=== PATIENT | male | born 1940 | race Caucasian/White ===

== ENCOUNTER 2019-07-03 20:59 | Emergency (ER) | payer MEDICARE, OTHER ==
--- OUTSIDE RECORDS SUMMARY | 2019-07-03 21:14 | XMS REPORT | Continuity of Care Document ---
:1940 External Reference #:[id number] Author Name Felix Watson MD (transmitted by agent of provider Gladys Cote ) Address [address] [place] [address] Care Team Providers Name Role Phone Taj Crespo MD - Nephrology Care Team Information Videotape Sales Representative Cesar Franks MD - Dermatology Care Team Information Videotape Sales Representative [phone] Ranjith Rocha MD - Endocrinology, Care Team Information Videotape Sales Representative [phone] Diabetes & Metabolism Carlitos Vásquez MD - Endocrinology, Care Team Information Videotape Sales Representative Diabetes & Metabolism Debbie Broussard MD - Internal Medicine Care Team Information Videotape Sales Representative [phone] Marvel Michelle MD - Interventional Care Team Information Videotape Sales Representative Pain Medicine Problems Active Problems Provider Date Chronic kidney disease stage 5 Neo Tenorio M.D.,FACP Onset: 12/22/2017 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 with prior surgeyry and radiation Osteoporosis Julio Jain NP Onset: 03/29/2017 Note: On Prolia, 1st dose November 2015 Parkinson's disease Julio Jain NP Onset: 03/29/2017 Essential hypertension Julio Jain NP Onset: 03/29/2017 Decreased testosterone level Julio Jain MRI TECHNOLOGIST Onset: 03/29/2017 Hypothyroidism Julio Jain MRI TECHNOLOGIST Onset: 03/29/2017 Note: central Hypercholesterolemia Julio Jain NP Onset: 03/29/2017 Benign prostatic hypertrophy with outflow Julio Jain NP Onset: 03/29/2017 obstruction Monoclonal free kappa light chain present Neo Tenorio, Onset: 2016 rBie,FACP Moderate recurrent major depression Neo Tenorio, Onset: 06/22/2017 Brie,FACP Basal ganglia degeneration with Neo Tenorio, 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 Brie,FACP Note: RT scarring since 2008 on MRI Social History Type Date Description Comments Sex Unknown Tobacco Use Start: Unknown Never Smoked Cigarettes Smoking Status Reviewed: 04/16/19 Never Smoked Cigarettes ETOH Use 08/23/2017 Occasionally consumes alcohol Tobacco Use Start: Unknown Patient has never smoked Recreational Drug Use Never Used Drugs Exercise Type/Frequency Exercises rarely Allergies, Adverse Reactions, Alerts Description No Known Drug Allergies Medications Active Medications SIG Qnty Indications Ordering Provider Date Levothyroxine Sodium 1 by mouth every 90tabs Debbie Broussard MD 02/06/2019 day, upped to 75mcg Tablets 88mcg tablet Amlodipine Besylate Take 1 Tablet By 30tabs Julio Jain NP 12/25/2018 Mouth Every Day 2.5mg Tablets Shingrix 0.5ml 2units Z23 Julio Jain NP 10/10/2018 50mcg/0.5ML intramuscular, Suspension Rec repeat 2-6 months later Comtan taking 2 tablets 90tabs G20 Binu Dailey, 09/11/2018 200mg Tablets daily M.D. Rivastigmine 1 patch each day 30units F03.91 Binu Dailey, 02/13/2018 Transdermal System M.D. 4.6mg/24HR Patches 24HR Memantine HCL 1 tab mouth 60tabs G23.1 Ollie Love, 10/16/2017 5mg twice a day M.D. Tablets Hydrocortisone take one tablet 60tabs Neo Tenorio, 10mg by mouth twice a M.D.,FACP Tablets day Carbidopa-Levodopa 2 tabs by mouth 540tabs Binu Dailey, three times a M.D. 25-100mg Tablets day Prolia 60 mg sc every 6 1ml M81.0 Julio Jain NP 60mg/ml Soln months Prefill Syringe Prostate Vitamin daily Unknown Capsules Co Q 10 1 by mouth every Unknown 100mg Capsules day Androgel Pump 1 actuation Unknown topical every 20.25mg/Act (1.62%) morning Gel Atorvastatin Calcium take 1 tablet by 90tabs Julio Jain NP mouth every day 40mg Tablets Multi For Him 1 by mouth every Unknown Capsules day Medications Administered in Office Medication SIG Qnty Indications Ordering Provider Date Prolia Injection Patient Nurse Visit A 05/06/2019 Provided Injection Prolia Injection Patient Nurse Visit A 11/02/2018 Provided Injection Prolia Injection, Denosumab, Nurse Visit Reagan 01/30/2018 1MG Injection Prolia no bill patient Nurse Visit Reagan 07/28/2017 Injection Testosterone Pt Provided Vac Nurse Visit A 05/05/2017 Injection Testosterone Pt Provided Vac Nurse Visit A 04/21/2017 Injection Testosterone Pt Provided Vac Neo Tenorio, 04/07/2017 Injection CHASITY Baird Testosterone Pt Provided Vac Julio Jain NP 03/24/2017 Injection Immunizations CPT Code Status Date Vaccine Lot # [id number] Given 07/08/2018 Influenza Virus Vaccine, Quadrivalent, Split, Preservative Free [id number] Given 05/30/2018 Tdap - Tetanus/Diptheria/Acellular Pertussis [id number] Given 06/22/2017 Pneumococcal Conjugate Vaccine 13 Valent For [id number] Intramuscular Use [id number] Given 05/05/2017 Influenza Virus Vaccine, Quadrivalent, Split, [id number] Preservative Free Vital Signs Date Vital Result Comment 06/24/2019 1:50pm Weight 157.00 lb Heart Rate 60 /min BP Systolic Sitting 140 mmHg BP Diastolic Sitting 78 mmHg 04/16/2019 8:41am Height 65 inches 5'5" Weight 157.00 lb Heart Rate 58 /min BP Systolic 122 mmHg BP Diastolic 70 mmHg BMI (Body Mass Index) 26.1 kg/m2 Results Test Date Facility Test Result H/L Range Note Comp Metabolic 04/10/2019 [facility] Sodium 139 mmol/L Normal 135-[address] [place] [address] [phone] Potassium 3.7 mmol/L Normal 3.5-5.0 Chloride 103 mmol/L Normal 101-111 Co2 Carbon Dioxide 28 mmol/L Normal 22-32 Anion Gap 8 mmol/L Normal 2-11 Glucose 77 mg/dL Normal 70-100 Blood Urea Nitrogen 35 mg/dL High 6-24 Creatinine 2.48 mg/dL High 0.67-1.17 One Over Creatinine 0.40 BUN/Creatinine Ratio 14.1 Normal 8-20 Calcium 10.2 mg/dL Normal 8.6-10.3 Total Protein 7.0 g/dL Normal 6.4-8.9 Albumin 4.2 g/dL Normal 3.2-5.2 Globulin 2.8 g/dL Normal 2-4 Albumin/Globulin Ratio 1.5 Normal 1-3 Total Bilirubin 0.60 mg/dL Normal 0.2-1.0 Alkaline Phosphatase 46 U/L Normal 34-104 Alt 5 U/L Low 7-52 Ast 20 U/L Normal 13-39 Egfr Non- 25.2 >60 Egfr 30.5 >60 1 Laboratory test 04/10/2019 [facility] Phosphorus 2.9 mg/dL Normal 2.5-5.[address] [place] [address] [phone] Magnesium 1.8 mg/dL Low 1.9-2.7 Laboratory test 03/28/2019 [facility] CSF Protein 63 mg/dL High 15-[address] [place] [phone] CSF Glucose 63 mg/dL Normal 40-70 CSF Cell Count 03/28/2019 [facility] Body Fluid Cerebral Spinal [address] [facility] Source [place], [place] [id number] [phone] Body Fluid Appearance Clear Body Fluid Color Colorless CSF Tube # 4 Body Fluid Volume 5.5 mL Body Fluid WBC 0 /mcL Body Fluid RBC 0 /mcL Body Fluid Lymph 1 % Body Fluid [place] 2 % Body Fluid Total Cells Counted 3 Fluid Reviewed By MD (SEE NOTE) 2 Laboratory test 03/28/2019 [facility] RPR CSF Negative Negative [address] [place] [address] [phone] CBC Auto Diff 02/06/2019 [facility] White 12.0 10^3/uL High 3.5-10.8 [address] [facility] [place] [address] Count [phone] Red Blood Count 3.93 10^6/uL Low 4.18-5.48 Hemoglobin 11.9 g/dL Low 14.0-18.0 Hematocrit 35 % Low 42-52 Mean Corpuscular Volume 89 fL Normal 80-94 Mean Corpuscular Hemoglobin 30 pg Normal 27-31 Mean Corpuscular HGB Conc 34 g/dL Normal 31-36 Red Cell Distribution Width 14 % Normal 10-15 Platelet Count 211 10^3/uL Normal 150-450 Mean Platelet Volume 9.8 fL Normal 7.4-10.4 Abs Neutrophils 8.4 10^3/uL High 1.5-7.7 Abs Lymphocytes 2.6 10^3/uL Normal 1.0-4.8 Abs Monocytes 0.7 10^3/uL Normal 0-0.8 Abs Eosinophils 0.2 10^3/uL Normal 0-0.6 Abs Basophils 0.1 10^3/uL Normal 0-0.2 Abs Nucleated RBC 0.0 10^3/uL Granulocyte % 70.2 % Lymphocyte % 21.8 % Monocyte % 5.7 % Eosinophil % 1.9 % Basophil % 0.4 % Nucleated Red Blood Cells % 0.0 Comp Metabolic 02/05/2019 [facility] Sodium 140 mmol/L Normal 135-[address] [place] [address] [phone] Potassium 3.9 mmol/L Normal 3.5-5.0 Chloride 105 mmol/L Normal 101-111 Co2 Carbon Dioxide 29 mmol/L Normal 22-32 Anion Gap 6 mmol/L Normal 2-11 Glucose 89 mg/dL Normal 70-100 Blood Urea Nitrogen 51 mg/dL High 6-24 Creatinine 3.33 mg/dL High 0.67-1.17 BUN/Creatinine Ratio 15.3 Normal 8-20 Calcium 11.5 mg/dL High 8.6-10.3 Total Protein 7.2 g/dL Normal 6.4-8.9 Albumin 4.2 g/dL Normal 3.2-5.2 Globulin 3.0 g/dL Normal 2-4 Albumin/Globulin Ratio 1.4 Normal 1-3 Total Bilirubin 0.60 mg/dL Normal 0.2-1.0 Alkaline Phosphatase 53 U/L Normal 34-104 Alt 5 U/L Low 7-52 Ast 17 U/L Normal 13-39 Egfr Non- 17.9 >60 Egfr 21.7 >60 4 Laboratory test 02/05/2019 [facility] TSH (Thyroid 0.16 Low 0.34-5.[address] Stim Horm) mcIU/[place] [address] [phone] Free T4 (Free Thyroxine) 0.81 ng/dL Normal 0.61-1.12 CBC Auto 02/05/2019 [facility] White Blood 12.0 10^3/uL High 3.5-10.[address] [place] [address] [phone] Red Blood Count 4.03 10^6/uL Low 4.18-5.48 Hemoglobin 12.2 g/dL Low 14.0-18.0 Hematocrit 36 % Low 42-52 Mean Corpuscular Volume 90 fL Normal 80-94 Mean Corpuscular Hemoglobin 30 pg Normal 27-31 Mean Corpuscular HGB Conc 34 g/dL Normal 31-36 Red Cell Distribution Width 14 % Normal 10-15 Platelet Count 212 10^3/uL Normal 150-450 Mean Platelet Volume 9.4 fL Normal 7.4-10.4 Abs Neutrophils 7.4 10^3/uL Normal 1.5-7.7 Abs Lymphocytes 3.1 10^3/uL Normal 1.0-4.8 Abs Monocytes 1.0 10^3/uL High 0-0.8 Abs Eosinophils 0.4 10^3/uL Normal 0-0.6 Abs Basophils 0.1 10^3/uL Normal 0-0.2 Abs Nucleated RBC 0.0 10^3/uL Granulocyte % 61.7 % Lymphocyte % 25.9 % Monocyte % 8.2 % Eosinophil % 3.7 % Basophil % 0.5 % Nucleated Red Blood Cells % 0.0 Urinalysis Profile 02/05/2019 [facility] Urine Color Arti [address] [place] [address] [phone] Urine Appearance Clear Urine Specific [place] 1.013 Normal 1.010-1.030 Urine pH 6.0 Normal 5-9 Urine Urobilinogen Negative Negative Urine Ketones Negative Negative Urine Protein Negative Negative Urine Leukocytes Negative Negative Urine Blood Negative Negative * * Abnormal Negative 5 Urine Nitrite Negative Negative Urine Bilirubin Negative Negative Urine Glucose Negative Negative 1 Because ethnic data is not always readily available, this report includes an eGFR for both -Americans and non- Americans. The National Kidney Disease Education Program (NKDEP) does not endorse the use of the MDRD equation for patients that are not between the ages of 18 and 70, are , have extremes of body size, muscle mass, or nutritional status, or are non- or non-. According to the National Kidney Foundation, irrespective of diagnosis, the stage of the disease is based on the level of kidney function: Stage Description GFR(mL/min/1.73 m(2)) 1 Kidney damage with normal or decreased GFR 90 2 Kidney damage with mild decrease in GFR 60-89 3 Moderate decrease in GFR 30-59 4 Severe decrease in GFR 15-29 5 Kidney failure <15 (or dialysis) 2 No evidence of an acute inflammatory response. No evidence of malignancy. Reviewed by Lisa Carter MD 3 Test Performed by: [facility] [address] [place] [id number] 4 Because ethnic data is not always readily available, this report includes an eGFR for both -Americans and non- Americans. The National Kidney Disease Education Program (NKDEP) does not endorse the use of the MDRD equation for patients that are not between the ages of 18 and 70, are , have extremes of body size, muscle mass, or nutritional status, or are non- or non-. According to the National Kidney Foundation, irrespective of diagnosis, the stage of the disease is based on the level of kidney function: Stage Description GFR(mL/min/1.73 m(2)) 1 Kidney damage with normal or decreased GFR 90 2 Kidney damage with mild decrease in GFR 60-89 3 Moderate decrease in GFR 30-59 4 Severe decrease in GFR 15-29 5 Kidney failure <15 (or dialysis) 5 *Ascorbic acid is present which may interfere with detection of blood. Procedures Date Code Description Status 05/06/2019 82561 Admin Of Inj Completed 05/11/2017 176804010 Bone Mineral Density Test Completed 12/26/2013 86567688 Colonoscopy Completed Medical Devices Description No Information Available Encounters Type Date Location Provider Dx Diagnosis Office Visit 04/16/2019 [facility] Mitch Valdez NP G31.84 Mild cognitive 8:30a [facility] impairment, so stated G20 Parkinson's disease R29.6 Repeated falls G93.2 Benign intracranial hypertension Office Visit 03/28/2019 [facility] G20 Parkinson's 11:00a Clinic Brie Dailey disease G31.84 Mild cognitive impairment, so stated Office Visit 02/25/2019 [facility] G20 Parkinson's 10:45a Clinic Brie Dailey disease R29.6 Repeated falls Office Visit 02/05/2019 9:40a [facility] Internal Debbie Broussard, G20 Parkinson's disease Medicine [facility] R29.6 Repeated falls Assessments Date Code Description Provider 06/24/2019 G20 Parkinson's disease Felix Watson MD 06/24/2019 G91.2 (Idiopathic) normal pressure hydrocephalus Felix Watson MD 05/06/2019 M81.0 Age-related osteoporosis without current Nurse Visit A pathological fracture 04/16/2019 G31.84 Mild cognitive impairment, so stated Mitch Valdez NP 04/16/2019 G20 Parkinson's disease Mitch Valdez NP 04/16/2019 R29.6 Repeated falls Mitch Valdez NP 04/16/2019 G93.2 Benign intracranial hypertension Mitch Valdez NP 03/28/2019 G20 Parkinson's disease Binu Dailey M.D. 03/28/2019 G31.84 Mild cognitive impairment, so stated Binu Dailey M.D. 02/25/2019 G20 Parkinson's disease Binu Dailey M.D. 02/25/2019 R29.6 Repeated falls Binu Dailey M.D. 02/05/2019 G20 Parkinson's disease Debbie Broussard MD 02/05/2019 R29.6 Repeated falls Debbie Broussard MD Plan of Treatment Future Appointment(s):08/09/2019 2:00 pm - Ollie Love M.D. at [facility]07/12/2019 8:45 am - Binu Dailey M.D. at [id number]/11/2019 11:00 am - Julio Jain NP at [facility] Internal [facility]06/24/2019 - Felix Watson MDG20 Parkinson's emkjnttX71.2 (Idiopathic) normal pressure hydrocephalus Functional Status Description No Information Available Mental Status Description No Information Available Referrals Refer to Reason for Referral Status Appt Date Felix Watson MD Referral for ventricular shunt. Had an LP Sent with improvement in mobility. [address] [place] [address] [phone] Marvel Michelle MD LP for possible NPH Sent 03/22/[address] [place] [id number] [phone]
--- NOTE | 2019-07-03 21:34 | ED ---
Upper Extremity Pain - HPI Summary HPI Summary: 79 year old M presenting [facility] accompanied by and son complains of right elbow pain after fall today 07/03/19. states patient has had increased falls in the last couple weeks. states that last night, patient had a fall, and they had difficulty getting him up. states patient had OT this morning, and had difficulty getting up after a fall. states patient has had multiple falls today. states she is concerned that patient is having increased difficulty getting up after falling. No head trauma. Patient reports decreased appetite, difficulty with speech and swallowing, weakness, back pain. Patient denies headache, fever, chest pain, shortness of breath, abdominal pain, urinary sx. The patient rates the pain 8/10 in severity. Symptoms aggravated by nothing. Symptoms alleviated by nothing. Hx Parkinson's. Hx kidney disease. - History of Current Complaint Chief Complaint: EDFall Stated Complaint: MULTIPLE FALLS PER Time Seen by Provider: 07/03/19 21:29 Hx Obtained From: Patient, Family/[employer] - Onset/Duration: Started Weeks Ago, Still Present, Worse Since - today 07/03 Timing: Constant Severity Currently: Severe - 8/10 Pain Location: Elbow - right Aggravating Factor(s): Nothing Alleviating Factor(s): Nothing Associated Signs & Symptoms: Positive: Negative - headache, fever, chest pain, shortness of breath, abdominal pain, urinary sx, Other - decreased appetite, difficulty with speech and swallowing, weakness, back pain - Allergies/Home Medications Allergies/Adverse Reactions: Allergies Allergy/AdvReac Type Severity Reaction Status Date / Time No Known Allergies Allergy Verified 07/03/19 21:07 Home Medications: Home Medications Entacapone (NF) [Comtan (NF)] 200 mg PO BID 07/03/19 [History Confirmed 07/03/19 ] Levothyroxine TAB* [Synthroid TAB*] 88 mcg PO DAILY 07/03/19 [History Confirmed 07/03/19] Multivitamins/Minerals TAB* [Theragran/minerals TAB*] 1 tab PO DAILY 07/03/19 [ History Confirmed 07/03/19] Super Beta Prostate 250 mg PO DAILY 07/03/19 [History Confirmed 07/03/19] Ubidecarenone [Coq-10] 100 mg PO DAILY 07/03/19 [History Confirmed 07/03/19] amLODIPine TAB* [Norvasc 5 mg TAB*] 2.5 mg PO DAILY 07/03/19 [History Confirmed 07/03/19] PMH/Surg Hx/FS Hx/Imm Hx Endocrine/Hematology History: Denies: Hx Diabetes Cardiovascular History: Reports: Hx Hypertension - ON MEDS Denies: Hx Pacemaker/ICD History: 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 TONSILLECTOMY AND ADENOIDS;. LT 4TH AND 5TH FINGERS; Infectious Disease History: No Infectious Disease History: Denies: Traveled Outside the [place] in Last 30 Days - Social History Alcohol Use: None Substance Use Type: Reports: None Hx Tobacco Use: No Smoking Status (MU): Never Smoked Tobacco Review of Systems Negative: Fever Negative: Chest Pain Negative: Shortness Of Breath Positive: Other - decreased appetite. Negative: Abdominal Pain Positive: no symptoms reported Positive: Other - right elbow pain, back pain Neurological: Other - difficulty with speech and swalloing Positive: Weakness. Negative: Headache All Other Systems Reviewed And Are Negative: Yes Physical Exam - Summary Physical Exam Summary: Appearance: Well-appearing, Well-nourished, lying in bed comfortably Skin: Warm, dry, no obvious rash, linear abrasions on his right forearm Eyes: sclera anicteric, no conjunctival pallor ENT: mucous membranes moist, pharynx appears normal Neck: Supple, nontender Respiratory: Clear to auscultation, no signs of respiratory distress Cardiovascular: Normal S1, S2. No murmurs. Normal distal pulses in tibial and radial bilaterally. Abdomen: Soft, nontender, normal active bowel sounds present Musculoskeletal: Normal, Strength/ROM Intact Neurological: A&Ox3, awake and alert, mentation is normal, speech is fluent and appropriate Psychiatric: affect is normal, does not appear anxious or depressed Triage Information Reviewed: Yes Vital Signs On Initial Exam: Initial Vitals Temp Pulse Resp BP Pulse Ox 97.9 F 77 18 156/79 97 07/03/19 21:03 07/03/19 21:03 07/03/19 21:03 07/03/19 21:03 07/03/19 21:03 Vital Signs Reviewed: Yes Procedures - Sedation Patient Received Moderate/Deep Sedation with Procedure: No Diagnostics - Vital Signs Vital Signs Temp Pulse Resp BP Pulse Ox 07/03/19 21:03 97.9 F 77 18 156/79 97 - Laboratory Result Diagrams: 07/03/19 21:25 07/03/19 21:25 Lab Statement: Any lab studies that have been ordered have been reviewed, and results considered in the medical decision making process. - EKG 2148 Cardiac Rate: NL - 68 BPM EKG Rhythm: Sinus Rhythm Summary of EKG Findings: NSR at 68 BPM, P waves, QRS complex, and T waves are within normal limits, T waves and intervals are normal, no ischemic changes. This is a normal EKG. Re-Evaluation - Re-Evaluation First Eval Re-Evaluation Time: 00:30 Comment: family agrees to d/c Course/Dx - Course Course Of Treatment: 79 year old M complains of frequent falls in the last several weeks. Upon exam, the patient has linear abrasions on his right forearm. Bloodwork results with no significant abnormalities except for RBC 3.88, Hgb 12.3, MCH 32, absolute neuts 7.8, absolute lymphs 0.8, absolute monos 0.9, potassium 3.4, BUN 45, creatinine 3.00, glucose 126, calcium 10.9, magnesium 1.6, ALT 4, CRP 29.39, and TSH 0.08. Urinalysis results with no significant abnormalities. Toxicology results with no significant abnormalities. EKG shows NSR at 68 BPM, P waves, QRS complex, and T waves are within normal limits, T waves and intervals are normal, no ischemic changes. This is a normal EKG. Dr. Emmanuel, hospitalist, agrees to evaluate patient for admission. The patient was originally going to be admitted to observation for social work consult but his family elected to take him home, they will look into alf care. I did place a consult to social work to see if someone can reach out to offer some assistance in this. Patient will be discharged home with follow up from his primary care provider as soon as possible. Patient was instructed to return to Emergency Department for new or worsening symptoms. Patient understands and is agreeable to this plan. - Diagnoses Provider Diagnoses: Frequent falls - Physician Notifications Discussed Care of Patient With: Saman Emmanuel Time Discussed With Above Provider: 23:58 Instructed by Provider To: Other - Dr. Emmanuel, hospitalist, agrees to evaluate patient for admission. Discharge ED - Sign-Out/Discharge Documenting (check all that apply): Patient Departure - Discharge - Discharge Plan Condition: Good Disposition: HOME Patient Education Materials: Fall Prevention (ED) Referrals: Debbie Broussard MD [Primary Care Provider] - As Soon As Possible - Billing Disposition and Condition Condition: GOOD Disposition: Home - Attestation Statements Document Initiated by Kishoribe: Yes Documenting Scribe: Becky Ayala Provider For Whom Nancy is Documenting (Include Credential): Andrés Elizalde MD Scribe Attestation: Becky Patricia scribed for Andrés Elizalde MD on 07/04/19 at 0510. Scribe Documentation Reviewed: Yes Provider Attestation: The documentation as recorded by the Becky chew accurately reflects the service I personally performed and the decisions made by Andrés minor MD Status of Scribe Document: Viewed
[2019-07-03 21:35] LABS: ABS Eosinophils 0.1 10^3/ul (0-0.6); ABS Lymphocytes 0.8 10^3/ul (1.0-4.8); ABS Monocytes 0.9 10^3/ul (0-0.8); ABS Neutrophils 7.8 10^3/ul (1.5-7.7); Eosinophil % 0.9 %; Hematocrit 35 % (42-52); Hemoglobin 12.3 g/dL (14.0-18.0); Lymphocyte % 8.2 %; Mean Corpuscular HGB Conc 35 g/dL (31-36); Mean Corpuscular Hemoglobin 32 pg (27-31); Mean Corpuscular Volume 91 fL (80-94); Platelet Count 183 10^3/uL (150-450); Red Blood Count 3.88 10^6 /uL (4.18-5.48); Red Cell Distribution Width 13 % (10-15); White Blood Count 9.6 10^3/uL (3.5-10.8)
[2019-07-03 21:51] LABS: Albumin 4.1 g/dL (3.2-5.2); Anion Gap 4 mmol/L (2-11); Blood Urea Nitrogen 45 mg/dL (6-24); CO2 Carbon Dioxide 27 mmol/L (22-32); Calcium 10.9 mg/dL (8.6-10.3); Chloride 104 mmol/L (101-111); EGFR African American 24.4 (>60); EGFR Non-African American 20.2 (>60); Globulin 3.2 g/dL (2-4); Glucose 126 mg/dL (70-100); Magnesium 1.6 mg/dL (1.9-2.7); Potassium 3.4 mmol/L (3.5-5.0); Sodium 135 mmol/L (135-145); Total Protein 7.3 g/dL (6.4-8.9)
[2019-07-03 21:52] LABS: ALT 4 U/L (7-52); AST 18 U/L (13-39); Albumin/Globulin Ratio 1.3 (1-3); Alkaline Phosphatase 50 U/L (34-104); C Reactive Protein 29.39 mg/L (<8.01)
[2019-07-03 21:53] LABS: Troponin I 0.01 ng/mL (<0.04)
[2019-07-03 22:10] LABS: Alcohol < 10 mg/dL (<10)
[2019-07-03 22:25] LABS: TSH (Thyroid Stimulating Horm) 0.08 mcIU/mL (0.34-5.60)
[2019-07-03 22:48] LABS: Urine Appearance Clear; Urine Bilirubin Negative (Negative); Urine Blood Negative (Negative); Urine Color Yellow; Urine Glucose Negative (Negative); Urine Ketones Negative (Negative); Urine Nitrite Negative (Negative); Urine Protein Negative (Negative); Urine Specific Gravity 1.012 (1.010-1.030); Urine Urobilinogen Negative (Negative)
[2019-07-04 00:49] VITALS: BP 160/102
== END 2019-07-04 00:48 | disposition home or self-care (01) ==
LOC: ED 20:59
DX: M25.521 Pain in right elbow (principal); W19.XXXA Unspecified fall, initial encounter; Z91.81 History of falling; Y92.9 Unspecified place or not applicable; G20 Parkinson's disease; I12.9 Hypertensive chronic kidney disease with stage 1 through stage 4 chronic kidney disease, or unspecified chronic kidney disease; N18.4 Chronic kidney disease, stage 4 (severe); E03.9 Hypothyroidism, unspecified; F41.9 Anxiety disorder, unspecified; Z85.820 Personal history of malignant melanoma of skin; Z79.890 Hormone replacement therapy; Z79.899 Other long term (current) drug therapy
CPT/HCPCS: 36415; 80053; 80320; 81003; 83605; 83735; 84443; 84484; 85025; 86140; 93005; 99282; G0480

== ENCOUNTER 2019-07-04 19:05 | Emergency (ER) | payer MEDICARE, OTHER ==
--- NOTE | 2019-07-04 20:27 | ED ---
Complex/Multi-Sys Presentation - HPI Summary HPI Summary: Patient is a 79 y/o M w/ Hx of Parkinson's disease, chronic kidney disease, and pituitary adenoma with pituitary replacement therapy x20 years s/p brain surgery who [place] [facility] accompanied by and son for evaluation of generalized decline. Family reports that the patient has had increased generalized weakness, decline in functionality, and difficulty with ADLs. Patient had been evaluated 07/03/19 with complaints of multiple falls and similar complaints for the past few weeks. There were plans to admit the patient for observation and social work consult. However, the family elected to take the patient home and to look into intermediate accountant care for the patient. They state that the patient's Sx have worsened and also report that he had a fall today as well, which prompted their return to the ED. The patient denies pain and injury. notes no recent head trauma. In room, vitals are BP 120/80, o2 92 on RA, pulse 81. On triage, pain is denied, nothing is noted to aggravate/ alleviate Sx. Home medications and allergies are reviewed. - History Of Current Complaint Chief Complaint: EDWeakness Time Seen by Provider: 07/04/19 20:04 Hx Obtained From: Patient Onset/Duration: Lasting Hours, Lasting Weeks, Still Present, Worse Since Timing: Constant Severity Currently: None - pain denied Aggravating Factor(s): nothing Alleviating Factor(s): nothing Associated Signs And Symptoms: Positive: Weakness - generalized, Other - positive - increased generalized weakness, decline in functionality, difficulty with ADLs, fall; negative - pain, injuries, head trauma - Allergies/Home Medications Allergies/Adverse Reactions: Allergies Allergy/AdvReac Type Severity Reaction Status Date / Time No Known Allergies Allergy Verified 07/03/19 21:07 PMH/Surg Hx/FS Hx/Imm Hx Endocrine/Hematology History: Denies: Hx Diabetes Cardiovascular History: Reports: Hx Hypertension - ON MEDS Denies: Hx Pacemaker/ICD History: 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 TONSILLECTOMY AND ADENOIDS;. LT 4TH AND 5TH FINGERS; - Immunization History Date of Influenza Vaccine: 04/2019 Immunizations Up to Date: Yes Infectious Disease History: No Infectious Disease History: Denies: Traveled Outside the [place] in Last 30 Days - Family History Known Family History: Negative: Cardiac Disease, Hypertension, Diabetes - Social History Alcohol Use: Rare Substance Use Type: Reports: None Hx Tobacco Use: No Smoking Status (MU): Never Smoked Tobacco Review of Systems Constitutional: Other - positive - increased generalized weakness, decline in functionality, and difficulty with ADLs Musculoskeletal: Other - positive - fall; negative - pain, injury Neurological: Other - negative - head trauma All Other Systems Reviewed And Are Negative: Yes Physical Exam - Summary Physical Exam Summary: Appearance: Well-appearing, Well-nourished, lying in bed comfortably Skin: Warm, dry, no obvious rash Eyes: sclera anicteric, no conjunctival pallor ENT: mucous membranes moist, pharynx appears normal Neck: Supple, nontender Respiratory: Clear to auscultation, no signs of respiratory distress Cardiovascular: Normal S1, S2. No murmurs. Normal distal pulses in tibial and radial bilaterally. Abdomen: Soft, nontender, normal active bowel sounds present Musculoskeletal: Normal, Strength/ROM Intact Neurological: A&Ox3, awake and alert, mentation is normal, speech is fluent and appropriate Psychiatric: affect is normal, does not appear anxious or depressed Triage Information Reviewed: Yes Vital Signs On Initial Exam: Initial Vitals Temp Pulse Resp BP Pulse Ox 98.8 F 88 16 80/58 94 07/04/19 19:42 07/04/19 19:42 07/04/19 19:42 07/04/19 19:42 07/04/19 19:42 Vital Signs Reviewed: Yes - Chang Coma Scale Best Eye Response: 4 - Spontaneous Best Motor Response: 6 - Obeys Commands Best Verbal Response: 5 - Oriented Coma Scale Total: 15 Procedures - Sedation Patient Received Moderate/Deep Sedation with Procedure: No Diagnostics - Vital Signs Vital Signs Temp Pulse Resp BP Pulse Ox 07/04/19 19:42 98.8 F 88 16 80/58 94 - Laboratory Lab Statement: Any lab studies that have been ordered have been reviewed, and results considered in the medical decision making process. - CT BRAIN CT CT Interpretation Completed By: Radiologist Summary of CT Findings: IMPRESSION: 1. No acute intracranial findings or hemorrhage. No subdural hematoma. 2. No. acute intracranial findings. Age- related atrophy and chronic white matter. ischemic change. 3. Extensive right basal ganglia calcifications. Calcified mass in this region. was postulated on prior brain MRIs. 4. Hypodensity in left basal ganglia which could represent subacute to chronic. infarct. These areas demonstrated abnormal signal on prior brain MRIs. THIS REPORT WAS REVIEWED BY DR. IVEY. Re-Evaluation - Re-Evaluation First Eval Re-Evaluation Time: 00:57 Change: Unchanged Comment: I contacted Dr. Emmanuel about admitting the patient, but after discussion with him and understanding he would be admitted to observation status , they declined admission and will again seek assistance for rehab care. Complex Multi-Symp Course/Dx Course Of Treatment: Patient is a 79 y/o M w/ Hx of Parkinson's disease, chronic kidney disease, and pituitary adenoma with pituitary replacement therapy x20 years s/p brain surgery who presents [place] [facility] accompanied by and son for evaluation of generalized decline. Family reports that the patient has had increased generalized weakness, decline in functionality, and difficulty with ADLs. Patient had been evaluated 07/03/19 with complaints of multiple falls and similar complaints for the past few weeks. There were plans to admit the patient for observation and social work consult. However, the family elected to take the patient home and to look into intermediate accountant care for the patient. They state that the patient's Sx have worsened and also report that he had a fall today as well, which prompted their return to the ED. The patient denies pain and injury. notes no recent head trauma. BRAIN CT IMPRESSION: 1. No acute intracranial findings or hemorrhage. No subdural hematoma. 2. No. acute intracranial findings. Age-related atrophy and chronic white matter. ischemic change. 3. Extensive right basal ganglia calcifications. Calcified mass in this region. was postulated on prior brain MRIs. 4. Hypodensity in left basal ganglia which could represent subacute to chronic. infarct. These areas demonstrated abnormal signal on prior brain MRIs. Patient's case was discussed with Dr. Emmanuel, Dr. Emmanuel accepts patient for admission to [facility]. [id number] - Dr. Emmanuel states that he offerred admission for observation to the patient. However, patient and family refused and stated they wish to be discharged. Patient was discharged to home with PCP follow up. - Diagnoses Provider Diagnoses: Generalized weakness, Gait disturbance, Parkinson disease - Physician Notifications Discussed Care Of Patient With: Saman Emmanuel Time Discussed With Above Provider: 22:50 Instructed by Provider To: Other - Patient's case was discussed with Dr. Emmanuel, Dr. Emmanuel accepts patient for admission to [facility]. 0056 - Dr. Emmanuel states that he offerred admission for observation to the patient. However, patient and family refused and stated they wish to be discharged. Discharge ED - Sign-Out/Discharge Documenting (check all that apply): Patient Departure - discharge - Discharge Plan Condition: Stable Disposition: HOME Patient Education Materials: Weakness (ED) Referrals: Debbie Broussard MD [Primary Care Provider] - As Soon As Possible - Billing Disposition and Condition Condition: STABLE Disposition: Home - Attestation Statements Document Initiated by Nancy: Yes Documenting Scribe: KIKI RODRIGUES Provider For Whom Nancy is Documenting (Include Credential): ANA IVEY MD Scribe Attestation: KIKI Patricia, scribed for ANA IVEY MD on 07/05/19 at 0555. Scribe Documentation Reviewed: Yes Provider Attestation: The documentation as recorded by the KIKI chew accurately reflects the service I personally performed and the decisions made by me, ANA IVEY MD Status of Scribe Document: Viewed
[2019-07-05 01:19] VITALS: BP 110/62
== END 2019-07-05 01:19 | disposition home or self-care (01) ==
LOC: ED 19:05
DX: R53.1 Weakness (principal); R26.9 Unspecified abnormalities of gait and mobility; G20 Parkinson's disease; I12.9 Hypertensive chronic kidney disease with stage 1 through stage 4 chronic kidney disease, or unspecified chronic kidney disease; N18.4 Chronic kidney disease, stage 4 (severe); F41.0 Panic disorder [episodic paroxysmal anxiety]; Z85.820 Personal history of malignant melanoma of skin; Z79.890 Hormone replacement therapy
CPT/HCPCS: 70450; 99283

== ENCOUNTER 2022-01-27 14:39 | Inpatient (IN) ==
[2022-01-27] MEDS ORDERED: NS 0.9% IV ONE (15:15)
[2022-01-27] MEDS ORDERED: Piperacillin/Tazobac ADVAN 3.375 GM in NS 0.9% 100 ml BAG 100 ML IV ONE (15:31)
[2022-01-27 15:41] LABS: ABS Basophils 0.1 10^3/ul (0-0.2); ABS Eosinophils 0.1 10^3/ul (0-0.6); ABS Lymphocytes 0.3 10^3/ul (1.0-4.8); ABS Monocytes 0.3 10^3/ul (0-0.8); ABS Neutrophils 8.1 10^3/ul (1.5-7.7); Eosinophil % 0.6 %; Hematocrit 21 % (42-52); Hemoglobin 6.8 g/dL (14.0-18.0); Lymphocyte % 3.2 %; Mean Corpuscular HGB Conc 32 g/dL (31-36); Mean Corpuscular Hemoglobin 32 pg (27-31); Mean Corpuscular Volume 98 fL (80-94); Mean Platelet Volume 9.8 fL (7.4-10.4); Nucleated Red Blood Cells % 0.1; Platelet Count 172 10^3/uL (150-450); Red Blood Count 2.15 10^6 /uL (4.18-5.48); Red Cell Distribution Width 18 % (10-15); White Blood Count 8.9 10^3/uL (3.5-10.8)
[2022-01-27 15:49] LABS: Activated Partial Thrombo Time 32.9 seconds (26.0-38.0); INR 1.04 (0.86-1.15)
[2022-01-27 16:05] LABS: High Sens Troponin Baseline 14 pg/mL (<20)
[2022-01-27 16:22] LABS: ALT 8 U/L (7-52); AST 24 U/L (13-39); Albumin 3.3 g/dL (3.2-5.2); Albumin/Globulin Ratio 1.4 (1-3); Alkaline Phosphatase 91 U/L (35-149); Blood Urea Nitrogen 105 mg/dL (6-24); C Reactive Protein 95.86 mg/L (<8.01); CO2 Carbon Dioxide 17 mmol/L (22-32); Calcium 9.1 mg/dL (8.6-10.3); Globulin 2.3 g/dL (2-4); Glucose 95 mg/dL (70-100); Potassium 4.8 mmol/L (3.5-5.0); Sodium 141 mmol/L (135-145); Total Protein 5.6 g/dL (6.4-8.9); eGFR CKD-EPI 12.6 (>60)
[2022-01-27 16:29] LABS: Anion Gap 11 mmol/L (2-11); Chloride 113 mmol/L (101-111)
[2022-01-27 17:02] LABS: High Sensitivity Troponin 1 Hr 11 pg/mL (<20)
[2022-01-27 17:48] LABS: Urine Appearance Clear; Urine Bilirubin Negative (Negative); Urine Blood Negative (Negative); Urine Color Yellow; Urine Glucose Negative (Negative); Urine Ketones Trace (Negative); Urine Nitrite Negative (Negative); Urine Protein Negative (Negative); Urine Specific Gravity 1.013 (1.002-1.030); Urine Urobilinogen Negative (Negative)
[2022-01-27] MEDS ORDERED: Hydrocortisone INJ 250 MG VIAL IV ONE (17:56)
[2022-01-27] MEDS ORDERED: NS 0.9% 1000 ml BAG 1,000 ML IV ONE (18:34)
[2022-01-27 19:32] LABS: TSH Ultra Thyroid Stim Horm 0.24 mcIU/mL (0.34-5.60)
[2022-01-27] MEDS ORDERED: Ondansetron 4 mg VIAL 2 MG/ML 2 ml VIAL IV PRN (19:32)
[2022-01-27 19:48] LABS: Hematocrit 20 % (42-52); Hemoglobin 6.2 g/dL (14.0-18.0); Mean Corpuscular HGB Conc 31 g/dL (31-36); Mean Corpuscular Hemoglobin 30 pg (27-31); Mean Corpuscular Volume 98 fL (80-94); Mean Platelet Volume 9.3 fL (7.4-10.4); Platelet Count 124 10^3/uL (150-450); Red Blood Count 2.06 10^6 /uL (4.18-5.48); Red Cell Distribution Width 19 % (10-15); White Blood Count 7.1 10^3/uL (3.5-10.8)
[2022-01-27] MEDS ORDERED: DOXYcycline 100 MG in NS 0.9% 250 ml 250 ML IVPB SCH (21:00)
[2022-01-27 21:01] LABS: Iron 35 ug/dL (50-212); Transferrin 196 mg/dL (203-362)
[2022-01-27] MEDS: Hydrocortisone INJ 100 MG/2ML 2 ML VIAL IV SCH (21:12)
[2022-01-27 21:20] LABS: Ferritin 167.1 ng/mL (24-336)
[2022-01-27 21:24] LABS: Folate > 20.00 ng/mL (5.90-24.80)
[2022-01-27 21:25] LABS: Vitamin B12 412 pg/mL (180-914)
[2022-01-27] MEDS: Carbidopa/Levodop 25/100 MG TAB PO SCH ×2 (23:18)
[2022-01-28 00:43] LABS: % Iron Saturation 13 % (15-55); Total Iron Binding Capacity 274 mcg/dL (250-450); Unsaturated Iron Binding 239 ug/dL
[2022-01-28 03:48] LABS: Corrected Retic Count 1.4 % (0.5-1.5); Hematocrit for Retic CNT 22 % (42-52); Immature Retic Fraction 0.65; RBC Retic Count 2.19 10^6/uL (4.18-5.48)
[2022-01-28] MEDS: Hydrocortisone INJ 100 MG/2ML 2 ML VIAL IV SCH ×3 (05:18→20:31)
[2022-01-28 05:57] LABS: ABS Lymphocytes 0.2 10^3/ul (1.0-4.8); ABS Monocytes 0.1 10^3/ul (0-0.8); ABS Neutrophils 8.3 10^3/ul (1.5-7.7); Hematocrit 25 % (42-52); Hemoglobin 7.9 g/dL (14.0-18.0); Lymphocyte % 2.8 %; Mean Corpuscular HGB Conc 32 g/dL (31-36); Mean Corpuscular Hemoglobin 31 pg (27-31); Mean Corpuscular Volume 95 fL (80-94); Mean Platelet Volume 9.5 fL (7.4-10.4); Nucleated Red Blood Cells % 0.2; Platelet Count 152 10^3/uL (150-450); Red Blood Count 2.58 10^6 /uL (4.18-5.48); Red Cell Distribution Width 20 % (10-15); White Blood Count 8.7 10^3/uL (3.5-10.8)
[2022-01-28 06:25] LABS: Albumin 3.1 g/dL (3.2-5.2); Albumin/Globulin Ratio 1.5 (1-3); Calcium 7.9 mg/dL (8.6-10.3); Globulin 2.1 g/dL (2-4); Magnesium 1.8 mg/dL (1.9-2.7); Phosphorus 6.7 mg/dL (2.5-5.0); Total Bilirubin 0.7 mg/dL (0.2-1.0); Total Protein 5.2 g/dL (6.4-8.9); eGFR CKD-EPI 12.2 (>60)
[2022-01-28] MEDS ORDERED: Magnesium Sulfate IV 1GM/100ML 1 GM/100 ML BAG IV ONE (06:32)
[2022-01-28] MEDS ORDERED: Zosyn per Pharmacy NOTE FOLLOW UP SCH (08:00)
[2022-01-28] MEDS ORDERED: Piperacillin/Tazobac ADVAN 3.375 GM in NS 0.9% 100 ml BAG 100 ML IV ONE (08:15)
[2022-01-28] MEDS: Carbidopa/Levodop 25/100 MG TAB PO SCH ×3 (08:30→21:03)
[2022-01-28] MEDS: Azithromycin 500 mg/250 ml NS 500 MG/250 ML BAG IVPB SCH (09:00)
[2022-01-28] MEDS ORDERED: fentaNYL 100 mcg/2 ml 50 MCG/ML VIAL ONE (11:33)
[2022-01-28] MEDS ORDERED: Acetaminophen IV 1 GM/100ML 100 ML IV ONE (15:27)
[2022-01-28] MEDS: Acetaminophen IV 1 GM/100ML 100 ML IV PRN ×2 (15:31→23:08)
[2022-01-28] MEDS: Carbidopa/Levodop CR 50/200 TAB.CR PO SCH ×2 (17:48→21:03)
[2022-01-28] MEDS ORDERED: Amantadine SOLN ORALSYR 10 mg/ml PO SCH (21:00)
[2022-01-28] MEDS: HYDROmorphone 0.5 MG/0.5 ML SYRINGE IV PRN (23:39)
[2022-01-29] MEDS ORDERED: Piperacillin/Tazobac ADVAN 3.375 GM in NS 0.9% 100 ml BAG 100 ML IV ONE (00:59)
[2022-01-29] MEDS ORDERED: Zosyn per Pharmacy NOTE FOLLOW UP SCH (01:00)
[2022-01-29 02:30] LABS: ABS Lymphocytes 0.3 10^3/ul (1.0-4.8); ABS Monocytes 0.3 10^3/ul (0-0.8); ABS Neutrophils 11.3 10^3/ul (1.5-7.7); Hematocrit 25 % (42-52); Hemoglobin 7.9 g/dL (14.0-18.0); Lymphocyte % 2.4 %; Mean Corpuscular HGB Conc 32 g/dL (31-36); Mean Corpuscular Hemoglobin 30 pg (27-31); Mean Corpuscular Volume 95 fL (80-94); Mean Platelet Volume 9.3 fL (7.4-10.4); Platelet Count 148 10^3/uL (150-450); Red Blood Count 2.65 10^6 /uL (4.18-5.48); Red Cell Distribution Width 20 % (10-15); White Blood Count 11.9 10^3/uL (3.5-10.8)
[2022-01-29 03:05] LABS: Albumin 3.2 g/dL (3.2-5.2); Albumin/Globulin Ratio 1.3 (1-3); Calcium 7.8 mg/dL (8.6-10.3); Globulin 2.4 g/dL (2-4); Potassium 4.7 mmol/L (3.5-5.0); Total Bilirubin 0.6 mg/dL (0.2-1.0); Total Protein 5.6 g/dL (6.4-8.9); eGFR CKD-EPI 11.3 (>60)
[2022-01-29] MEDS: Hydrocortisone INJ 100 MG/2ML 2 ML VIAL IV SCH ×3 (04:00→20:00)
[2022-01-29] MEDS: ZOSYN 3.375 GM Q12H per EXTENDED INFUSION IV SCH ×2 (05:40→16:30)
[2022-01-29] MEDS ORDERED: Amantadine SOLN ORALSYR 10 mg/ml PO SCH (08:00)
[2022-01-29 08:11] LABS: ABS Basophils 0.1 10^3/ul (0-0.2); ABS Lymphocytes 0.3 10^3/ul (1.0-4.8); ABS Monocytes 0.3 10^3/ul (0-0.8); ABS Neutrophils 10.2 10^3/ul (1.5-7.7); Hematocrit 24 % (42-52); Hemoglobin 7.8 g/dL (14.0-18.0); Lymphocyte % 3.1 %; Mean Corpuscular HGB Conc 33 g/dL (31-36); Mean Corpuscular Hemoglobin 31 pg (27-31); Mean Corpuscular Volume 94 fL (80-94); Mean Platelet Volume 8.9 fL (7.4-10.4); Nucleated Red Blood Cells % 0.1; Platelet Count 146 10^3/uL (150-450); Red Blood Count 2.52 10^6 /uL (4.18-5.48); Red Cell Distribution Width 19 % (10-15); White Blood Count 10.9 10^3/uL (3.5-10.8)
[2022-01-29] MEDS: Carbidopa/Levodop 25/100 MG TAB PO SCH ×3 (08:26→20:00)
[2022-01-29] MEDS: Carbidopa/Levodop CR 50/200 TAB.CR PO SCH ×3 (08:26→20:01)
[2022-01-29 08:42] LABS: Albumin 2.9 g/dL (3.2-5.2); Albumin/Globulin Ratio 1.2 (1-3); Calcium 7.7 mg/dL (8.6-10.3); Globulin 2.5 g/dL (2-4); Magnesium 2.2 mg/dL (1.9-2.7); Potassium 4.8 mmol/L (3.5-5.0); Total Bilirubin 0.6 mg/dL (0.2-1.0); Total Protein 5.4 g/dL (6.4-8.9); eGFR CKD-EPI 11.3 (>60)
[2022-01-29] MEDS ORDERED: Testosterone Cypionate (NF) 200 MG/ML VIAL IM SCH (09:00)
[2022-01-29] MEDS: Azithromycin 500 mg/250 ml NS 500 MG/250 ML BAG IVPB SCH (09:57)
[2022-01-29] MEDS ORDERED: D5W 1/2 NS 1000 ml BAG 1,000 ML IV SCH (11:00)
[2022-01-29] MEDS ORDERED: Albuterol 2.5mg/3 ml (0.083%) NEB.SOLN INH PRN (16:40)
[2022-01-29] MEDS ORDERED: D5LR 1000 ml BAG 1,000 ML IV SCH (17:00)
[2022-01-29] MEDS ORDERED: Sodium Bicarb 8.4% Vial 50 ML 100 MEQ in D5W 1000 ml BAG 1,000 ML IV SCH ×2 (18:00→19:00)
[2022-01-29 18:10] LABS: PCO2 Arterial 23 mmHg (35-45); PO2 Arterial 71 mmHg (80-100)
[2022-01-30 01:18] LABS: Calcium 7.7 mg/dL (8.6-10.3); Potassium 4.2 mmol/L (3.5-5.0); eGFR CKD-EPI 10.8 (>60)
[2022-01-30] MEDS: Hydrocortisone INJ 100 MG/2ML 2 ML VIAL IV SCH ×3 (03:31→21:18)
[2022-01-30] MEDS: ZOSYN 3.375 GM Q12H per EXTENDED INFUSION IV SCH (05:02)
[2022-01-30] MEDS ORDERED: Desmopressin Acetate 4 MCG/ML 1 ML SDV SUBCUT ONE (05:44)
[2022-01-30 05:47] LABS: ABS Lymphocytes 0.2 10^3/ul (1.0-4.8); ABS Monocytes 0.6 10^3/ul (0-0.8); ABS Neutrophils 14.5 10^3/ul (1.5-7.7); Hematocrit 26 % (42-52); Hemoglobin 8.3 g/dL (14.0-18.0); Lymphocyte % 1.4 %; Mean Corpuscular HGB Conc 32 g/dL (31-36); Mean Corpuscular Hemoglobin 30 pg (27-31); Mean Corpuscular Volume 95 fL (80-94); Mean Platelet Volume 8.8 fL (7.4-10.4); Nucleated Red Blood Cells % 0.1; Platelet Count 175 10^3/uL (150-450); Red Blood Count 2.74 10^6 /uL (4.18-5.48); Red Cell Distribution Width 20 % (10-15); White Blood Count 15.4 10^3/uL (3.5-10.8)
[2022-01-30 06:10] LABS: Activated Partial Thrombo Time 30.9 seconds (26.0-38.0); Fibrinogen 533.6 mg/dL (110.8-404.3); INR 1.16 (0.86-1.15)
[2022-01-30 06:27] LABS: Albumin 3.1 g/dL (3.2-5.2); Albumin/Globulin Ratio 1.2 (1-3); C Reactive Protein 110.57 mg/L (<8.01); Calcium 7.6 mg/dL (8.6-10.3); Globulin 2.6 g/dL (2-4); Magnesium 2.2 mg/dL (1.9-2.7); Potassium 4.1 mmol/L (3.5-5.0); Total Bilirubin 0.6 mg/dL (0.2-1.0); Total Protein 5.7 g/dL (6.4-8.9)
[2022-01-30] MEDS: Carbidopa/Levodop 25/100 MG TAB PO SCH ×3 (08:27→21:00)
[2022-01-30] MEDS: Carbidopa/Levodop CR 50/200 TAB.CR PO SCH ×3 (08:28→21:00)
[2022-01-30] MEDS: Azithromycin 500 mg/250 ml NS 500 MG/250 ML BAG IVPB SCH (10:41)
[2022-01-30] MEDS: Sodium Bicarb 8.4% Vial 50 ML 100 MEQ in D5W 1000 ml BAG 1,000 ML IV SCH ×2 (11:54→22:56)
[2022-01-30 15:11] LABS: Calcium 7.6 mg/dL (8.6-10.3); Potassium 3.9 mmol/L (3.5-5.0); eGFR CKD-EPI 11.2 (>60)
[2022-01-30] MEDS: metroNIDAZOLE IV 500 MG/100ML 500 MG/100 ML BAG IVPB SCH ×2 (15:35→23:00)
[2022-01-30] MEDS ORDERED: Cefepime 0.5 GM in NS 0.9% 50 ML 50 ML IVPB SCH (16:00)
[2022-01-30] MEDS ORDERED: D5W 1000 ml BAG 1,000 ML IV SCH (16:00)
[2022-01-30] MEDS: HYDROmorphone 0.5 MG/0.5 ML SYRINGE IV PRN (21:18)
[2022-01-31] MEDS: Hydrocortisone INJ 100 MG/2ML 2 ML VIAL IV SCH ×3 (04:37→21:00)
[2022-01-31] MEDS: metroNIDAZOLE IV 500 MG/100ML 500 MG/100 ML BAG IVPB SCH (05:54)
[2022-01-31 05:59] LABS: ABS Basophils 0.1 10^3/ul (0-0.2); ABS Lymphocytes 0.2 10^3/ul (1.0-4.8); ABS Monocytes 0.7 10^3/ul (0-0.8); ABS Neutrophils 14.3 10^3/ul (1.5-7.7); Hematocrit 25 % (42-52); Hemoglobin 7.9 g/dL (14.0-18.0); Lymphocyte % 1.3 %; Mean Corpuscular HGB Conc 32 g/dL (31-36); Mean Corpuscular Hemoglobin 30 pg (27-31); Mean Corpuscular Volume 93 fL (80-94); Mean Platelet Volume 9.2 fL (7.4-10.4); Nucleated Red Blood Cells % 0.1; Platelet Count 173 10^3/uL (150-450); Red Blood Count 2.64 10^6 /uL (4.18-5.48); Red Cell Distribution Width 19 % (10-15); White Blood Count 15.3 10^3/uL (3.5-10.8)
[2022-01-31 06:28] LABS: Albumin 2.9 g/dL (3.2-5.2); Albumin/Globulin Ratio 1.1 (1-3); C Reactive Protein 110.41 mg/L (<8.01); Calcium 7.2 mg/dL (8.6-10.3); Globulin 2.7 g/dL (2-4); Potassium 3.5 mmol/L (3.5-5.0); Total Bilirubin 0.6 mg/dL (0.2-1.0); Total Protein 5.6 g/dL (6.4-8.9); eGFR CKD-EPI 12.4 (>60)
[2022-01-31] MEDS ORDERED: D5W 1000 ml BAG 1,000 ML IV SCH (07:12)
[2022-01-31] MEDS ORDERED: Sodium Bicarb 8.4% Vial 50 ML 100 MEQ in D5W 1000 ml BAG 1,000 ML IV SCH (07:12)
[2022-01-31 15:13] VITALS: BP 151/71
[2022-01-31] MEDS: Carbidopa/Levodop 25/100 MG TAB PO SCH ×2 (18:00→18:02)
[2022-01-31] MEDS: Morphine ORAL CONCENTRATE 5 MG/0.25 ML ORAL.SYRIN PO PRN ×2 (18:00→20:42)
[2022-01-31] MEDS: Carbidopa/Levodop CR 50/200 TAB.CR PO SCH ×2 (18:02→18:03)
[2022-01-31] MEDS: Sodium Bicarb 8.4% Vial 50 ML 100 MEQ in D5W 1000 ml BAG 1,000 ML IV SCH (18:54)
[2022-02-01] MEDS: Morphine ORAL CONCENTRATE 5 MG/0.25 ML ORAL.SYRIN PO PRN ×8 (00:40→23:47)
[2022-02-01] MEDS: Carbidopa/Levodop 25/100 MG TAB PO SCH ×4 (00:41→20:47)
[2022-02-01] MEDS: Carbidopa/Levodop CR 50/200 TAB.CR PO SCH ×4 (00:42→20:47)
[2022-02-01] MEDS: Hydrocortisone INJ 100 MG/2ML 2 ML VIAL IV SCH ×3 (05:42→20:48)
[2022-02-02] MEDS: Hydrocortisone INJ 100 MG/2ML 2 ML VIAL IV SCH (04:57)
[2022-02-02] MEDS: Morphine ORAL CONCENTRATE 5 MG/0.25 ML ORAL.SYRIN PO PRN ×2 (06:32→08:33)
[2022-02-02] MEDS: Carbidopa/Levodop CR 50/200 TAB.CR PO SCH (07:04)
[2022-02-02] MEDS: Carbidopa/Levodop 25/100 MG TAB PO SCH (07:04)
== END 2022-02-02 09:48 | disposition hospice, home (50) | DRG 871 ==
LOC: ED 14:39 → EDHOLD 19:32 → SUATTDRO 19:32 → ICU 21:21 → MEDTELE 01-29 01:26
PROVIDERS: ADMIT Surgery Surgical Critical Care; ATTEND Internal Medicine